=== PATIENT | male | born 1975 | race Caucasian/White ===

== ENCOUNTER 2017-08-05 20:33 | Inpatient (IN) | payer MEDICARE, OTHER ==
[~2017-08-05] VITALS: Ht 172.7 cm; Wt 72.6 kg
[2017-08-05] MEDS ORDERED: SODIUM CHLORIDE 0.9% 1,000 ML IV ONE (21:18)
[2017-08-05] MEDS ORDERED: ACETAMINOPHEN 650MG SUPP PR STA (21:19)
[2017-08-05] MEDS ORDERED: LEVETIRACETAM 1000MG/100ML 100 ML IV ONE (21:30)
[2017-08-05] MEDS ORDERED: SODIUM CHLORIDE 0.9% 1000ML BAG (SEPSIS BOLUS) IV ONE (21:30)
[2017-08-05 23:31] LABS: HEMATOCRIT. 38.4 % (42.0-52.0); HEMOGLOBIN. 12.7 g/dL (14.0-18.0); MEAN CORPUSCULAR HEMOGLOBIN 28.5 pg (28.0-32.0); MEAN CORPUSCULAR VOLUME 86.5 fL (80.0-94.0); MEAN PLATELET VOLUME 10.2 fl (7.4-10.4); PLATELET 131 x1000/uL (130-400); RED BLOOD CELL COUNT 4.44 mill/uL (4.7-6.1); RED CELL DISTRIBUTION WIDTH 13.1 % (11.6-14.6)
[2017-08-05 23:34] LABS: CHLORIDE 113 mEq/L (98-107)
[2017-08-05 23:38] LABS: AMMONIA 18 uMol/L (<32)
[2017-08-05 23:40] LABS: ETHANOL BLOOD < 10 mg/dL
[2017-08-05 23:41] LABS: INR 1.1; PARTIAL THROMBOPLASTIN TIME 24.6 sec (23.4-31.0); PROTHROMBIN TIME 11.1 sec (9.4-11.6)
[2017-08-05 23:45] LABS: CARBAMAZEPINE < 0.5 ug/mL (4-12); PHENOBARBITAL < 2.1 ug/mL (15.0-40.0); VALPROIC ACID < 3.0 ug/mL (50-100)
[2017-08-06] MEDS ORDERED: CEFTRIAXONE 2 G PREMIX 50 ML IV ONE (00:15)
[2017-08-06] MEDS ORDERED: VANCOMYCIN 1 G PREMIX 200 ML IV SCH (00:15)
[2017-08-06] MEDS ORDERED: DEXAMETHASONE 10 MG/ML VIAL IV ONE (00:15)
[2017-08-06] MEDS ORDERED: LORAZEPAM 2MG/ML CPJ IV ONE (00:45)
[2017-08-06 00:52] LABS: PLATELET ESTIMATE NORMAL
[2017-08-06] MEDS ORDERED: ACYCLOVIR INJ 750 MG in DEXT 5% WATER 125 ML IV STA (01:31)
[2017-08-06 01:37] LABS: CLARITY URINE TURBID (CLEAR); COLOR URINE YELLOW (YELLOW); KETONES URINE NEGATIVE (NEGATIVE); LEUKOCYTE ESTERASE URINE NEGATIVE (NEGATIVE); NITRITE URINE NEGATIVE (NEGATIVE); OCCULT BLOOD URINE NEGATIVE (NEGATIVE); PH URINE 7.5 (4.5-8.0); PROTEIN URINE TRACE (NEGATIVE); SPECIFIC GRAVITY URINE 1.023 (1.005-1.030); UROBILINOGEN URINE 0.2 E.U./dL (0.2-1.0)
[2017-08-06 01:56] LABS: *AMPHETAMINES SCREEN URINE NEGATIVE (NEGATIVE); *BARBITURATES SCREEN URINE NEGATIVE (NEGATIVE); *BENZODIAZEPINES SCREEN URINE PRESUMTIVE POSITIVE (NEGATIVE); *COCAINE SCREEN URINE NEGATIVE (NEGATIVE); METHADONE URINE SCREEN NEGATIVE (NEGATIVE); OPIATES URINE SCREEN NEGATIVE (NEGATIVE)
[2017-08-06 01:57] LABS: CANNABINOID URINE SCREEN NEGATIVE (NEGATIVE); PHENCYCLIDINE URINE SCREEN NEGATIVE (NEGATIVE)
[2017-08-06] MEDS ORDERED: DEXTROSE 50% WATER 50ML SYRINGE IV PRN (02:00)
[2017-08-06] MEDS ORDERED: LORAZEPAM 2MG/ML CPJ IV PRN (02:00)
[2017-08-06] MEDS ORDERED: ACETAMINOPHEN 325MG SUPP PR PRN (02:00)
[2017-08-06] MEDS ORDERED: ACETAMINOPHEN 650MG/20.3ML UDC PO PRN (02:00)
[2017-08-06] MEDS ORDERED: HYDRALAZINE 20MG/ML VIAL IV PRN (02:00)
[2017-08-06] MEDS ORDERED: ONDANSETRON HCL 4MG/2ML VIAL IV PRN (02:00)
[2017-08-06] MEDS ORDERED: CEFTRIAXONE 1,000 MG in DEXTROSE 5% WATER 50 ML IV SCH (02:00)
[2017-08-06] MEDS ORDERED: ACYCLOVIR INJ 750 MG in DEXT 5% WATER 250 ML IV NR (04:15)
[2017-08-06 22:30] VITALS: BP 106/90
[2017-08-06] MEDS ORDERED: PREG50CA PO (23:44)
[2017-08-06] MEDS ORDERED: RIFA550T PO (23:44)
[2017-08-06] MEDS ORDERED: LEVE1000 PO (23:44)
[2017-08-06] MEDS ORDERED: ZONI100C45 PO ×2 (23:44)
[2017-08-07] MEDS ORDERED: CEFTRIAXONE 1 G PREMIX 50 ML IV SCH (01:00)
[2017-08-07] MEDS: SODIUM CHLORIDE 0.45% 1,000 ML IV SCH ×2 (01:43→13:43)
[2017-08-07] MEDS: LEVETIRACETAM 500 MG in SODIUM CHLORIDE 0.9% 100 ML IV SCH ×2 (01:43→13:43)
[2017-08-07] MEDS: BLOOD SUGAR DIAGNOSTIC STRIP TEST SCH ×3 (08:03→17:59)
[2017-08-07] MEDS: INSULIN LISPRO 100 UNITS/ML SUBCUT SCH ×3 (08:04→17:59)
[2017-08-07] MEDS ORDERED: FAMOTIDINE 20MG/2ML VIAL IV SCH (09:00)
[2017-08-07 09:45] VITALS: BP 110/55
[2017-08-07 12:49] VITALS: BP 105/58
[2017-08-07 16:10] LABS: BASOPHILS % 0.5 % (0.0-2.0); EOSINOPHILS % 0.2 % (0.0-5.0); HEMATOCRIT. 37.9 % (42.0-52.0); HEMOGLOBIN. 12.7 g/dL (14.0-18.0); LYMPHOCYTES % 26.2 % (20.0-50.0); MEAN CORPUSCULAR HEMOGLOBIN 28.8 pg (28.0-32.0); MEAN CORPUSCULAR VOLUME 86.1 fL (80.0-94.0); MEAN PLATELET VOLUME 11.2 fl (7.4-10.4); MONOCYTES % 5.1 % (2.0-8.0); PLATELET 124 x1000/uL (130-400); RED CELL DISTRIBUTION WIDTH 13.3 % (11.6-14.6)
[2017-08-07 16:21] LABS: CHLORIDE 117 mEq/L (98-107)
[2017-08-07 17:13] VITALS: BP 125/67
[2017-08-07] MEDS ORDERED: LEVETIRACETAM 1500 MG PO SCH (17:30)
[2017-08-07] MEDS ORDERED: LEVETIRACETAM 500MG TABLET PO SCH (17:30)
[2017-08-07] MEDS ORDERED: RIFAXIMIN 550 MG TABLET PO SCH (17:30)
[2017-08-07] MEDS ORDERED: PREGABALIN 50 MG CAPSULE PO SCH (17:30)
[2017-08-07 17:52] VITALS: BP 125/67
[2017-08-07] MEDS ORDERED: ZONISAMIDE 100MG CAPSULE PO SCH ×2 (18:00→21:00)
== END 2017-08-07 19:12 | disposition home or self-care (01) | DRG 100 ==
LOC: ER 21:00 → 7WST 08-06 01:21 → ENRESERV 08-06 20:28
PROVIDERS: ADMIT Family Medicine; ATTEND Family Medicine
DX: G40.909 Epilepsy, unspecified, not intractable, without status epilepticus (principal); G93.41 Metabolic encephalopathy; K70.30 Alcoholic cirrhosis of liver without ascites; K70.9 Alcoholic liver disease, unspecified
CPT/HCPCS: 36415; 70450; 71045; 80048; 80053; 80156; 80165; 80184; 80185; 80305; 81003; 82140; 82962; 83605; 84484; 85025; 85610; 85730; 86850; 86900; 87040; 87086; 93005; 96361; 96365; 96366; 96367; 96368; 96375; 99291; G0482; J0133; J0696; J1100; J1953; J2060; J3370; J3490; J7030; J7050; J7060